=== PATIENT | male | born 1970 | race Caucasian/White ===

== ENCOUNTER 2024-08-14 13:29 | Emergency (ER) | payer SELFPAY ==
[~2024-08-14] VITALS: Ht 180.3 cm; Wt 63.5 kg
[~2024-08-14 13:29] MED LIST: Norco 10-325 T1 EACH PO
[2024-08-14 14:32] VITALS: BP 157/98
[2024-08-14 15:22] LABS: BASOPHILS ABSOLUTE AUTO 0.05 K/mm3 (0.00-0.23); BASOPHILS PERCENT AUTO 0 % (0-2); EOSINOPHILS ABSOLUTE AUTO 0.02 K/mm3 (0.00-0.68); EOSINOPHILS PERCENT AUTO 0 % (0-6); Hematocrit 42.7 % (37.0-53.0); Hemoglobin 14.6 g/dL (13.5-17.5); IMMATURE GRAN ABSOLUTE AUTO 0.11 K/mm3 (0.00-0.10); IMMATURE GRAN PERCENT AUTO 1 % (0-1); LYMPHOCYTES ABSOLUTE AUTO 1.35 K/mm3 (0.84-5.20); LYMPHOCYTES PERCENT AUTO 6 % (21-46); MONOCYTES ABSOLUTE AUTO 1.47 K/mm3 (0.16-1.47); MONOCYTES PERCENT AUTO 7 % (4-13); Mean Corpuscular HGB Conc 34.2 g/dL (31.5-36.5); Mean Corpuscular Volume 92 fL (80-100); NEUTROPHILS ABSOLUTE AUTO 18.99 K/mm3 (1.96-9.15); NEUTROPHILS PERCENT AUTO 86 % (41-73); NRBC ABSOLUTE 0.00 K/mm3 (0.00-0.02); NRBC Auto 0.0 /100 WBC (0.0-0.2); Platelet Count 299 K/mm3 (150-400); RDW Coefficient Variation 12.4 % (11.7-14.2); RDW Standard Deviation 42.1 fL (35.1-46.3)
[2024-08-14 15:40] LABS: Alanine Aminotransfer (ALT/SGP 32.0 U/L (12-78); Albumin, Blood 3.6 g/dL (3.4-5.0); Albumin/Globulin Ratio 0.9 (0.8-1.8); Anion Gap 7.0 mmol/L (3-11); Aspartate Aminotrans (AST/SGOT 19.0 U/L (12-37); Bilirubin, Total 0.6 mg/dL (0.1-1.0); Blood Urea Nitrogen 7.0 mg/dL (8-24); CO2, Blood 28.0 mmol/L (21-32); Calcium, Blood 9.2 mg/dL (8.5-10.1); Chloride, Blood 100.0 mmol/L (98-108); Creatinine, Blood 0.88 mg/dL (0.60-1.20); Globulin, Blood 3.8 g/dL (2.2-4.0); Glucose, Blood 109.0 mg/dL (70-99); Potassium, Blood 3.7 mmol/L (3.5-5.5); Sodium, Blood 131.0 mmol/L (136-145); Total Protein, Blood 7.4 g/dL (6.4-8.2)
[2024-08-14] MEDS ORDERED: Ketorolac Tromethamine 15mg Vial IV ONE (16:25)
[2024-08-14] MEDS ORDERED: Clindamycin 600mg in D5W 50 ML IV ONE (16:25)
[2024-08-14] MEDS ORDERED: NS 1,000 ML IV SCH (16:25)
[2024-08-14] MEDS ORDERED: Clindamycin HC150 MG PO (16:29)
[2024-08-14] MEDS ORDERED: HYDR1TAB94 PO (16:29)
== END 2024-08-14 17:51 | disposition left against medical advice (07) ==
LOC: ER 13:29
PROVIDERS: Student in an Organized Health Care Education/Training Program
DX: A41.9 Sepsis, unspecified organism (principal); L03.114 Cellulitis of left upper limb; E87.1 Hypo-osmolality and hyponatremia; Z53.29 Procedure and treatment not carried out because of patient's decision for other reasons
CPT/HCPCS: 73130; 80053; 83605; 85025; 90471; 90715; 96365; 96375; 99284-25; J1885; J7030

== ENCOUNTER 2024-08-16 15:42 | Inpatient (IN) | payer OTHER ==
[~2024-08-16] VITALS: Ht 177.8 cm; Wt 59.7 kg
[~2024-08-16 15:42] MED LIST changes: +Clindamycin HC150 MG PO; +HYDR1TAB94 PO
[2024-08-16 16:18] LABS: BASOPHILS ABSOLUTE AUTO 0.07 K/mm3 (0.00-0.23); BASOPHILS PERCENT AUTO 0 % (0-2); EOSINOPHILS ABSOLUTE AUTO 0.16 K/mm3 (0.00-0.68); EOSINOPHILS PERCENT AUTO 1 % (0-6); Hematocrit 40.3 % (37.0-53.0); Hemoglobin 13.7 g/dL (13.5-17.5); IMMATURE GRAN ABSOLUTE AUTO 0.08 K/mm3 (0.00-0.10); IMMATURE GRAN PERCENT AUTO 1 % (0-1); LYMPHOCYTES ABSOLUTE AUTO 1.48 K/mm3 (0.84-5.20); LYMPHOCYTES PERCENT AUTO 9 % (21-46); MONOCYTES ABSOLUTE AUTO 1.53 K/mm3 (0.16-1.47); MONOCYTES PERCENT AUTO 9 % (4-13); Mean Corpuscular HGB Conc 34.0 g/dL (31.5-36.5); Mean Corpuscular Volume 92 fL (80-100); NEUTROPHILS ABSOLUTE AUTO 13.18 K/mm3 (1.96-9.15); NEUTROPHILS PERCENT AUTO 80 % (41-73); NRBC ABSOLUTE 0.00 K/mm3 (0.00-0.02); NRBC Auto 0.0 /100 WBC (0.0-0.2); Platelet Count 331 K/mm3 (150-400); RDW Coefficient Variation 12.4 % (11.7-14.2); RDW Standard Deviation 42.5 fL (35.1-46.3)
[2024-08-16 16:50] LABS: Alanine Aminotransfer (ALT/SGP 39.0 U/L (12-78); Albumin, Blood 3.0 g/dL (3.4-5.0); Albumin/Globulin Ratio 0.7 (0.8-1.8); Anion Gap 8.0 mmol/L (3-11); Aspartate Aminotrans (AST/SGOT 29.0 U/L (12-37); Bilirubin, Total 0.5 mg/dL (0.1-1.0); Blood Urea Nitrogen 12.0 mg/dL (8-24); CO2, Blood 30.0 mmol/L (21-32); Calcium, Blood 8.9 mg/dL (8.5-10.1); Chloride, Blood 100.0 mmol/L (98-108); Creatinine, Blood 1.01 mg/dL (0.60-1.20); Globulin, Blood 4.1 g/dL (2.2-4.0); Glucose, Blood 134.0 mg/dL (70-99); Potassium, Blood 3.5 mmol/L (3.5-5.5); Sodium, Blood 134.0 mmol/L (136-145); Total Protein, Blood 7.1 g/dL (6.4-8.2)
[2024-08-16] MEDS ORDERED: NS 1,000 ML IV SCH ×2 (19:05→19:45)
[2024-08-16] MEDS ORDERED: Ciprofloxacin 400MG/D5 200ML 200 ML IV ONE (19:20)
[2024-08-16] MEDS ORDERED: Ondansetron HCl 2 MG / ML 2ML Vial IV PRN (19:45)
[2024-08-16] MEDS ORDERED: Vancomycin (Pharmacy Consult) IV SCH (19:45)
[2024-08-16] MEDS ORDERED: CeFAZolin Sodium 2,000 MG in NS 100 ML IV SCH (20:00)
[2024-08-16] MEDS ORDERED: Lactobacil 2-S.Thermo-Bifido 1 1 Cap PO SCH (21:00)
[2024-08-16 21:01] VITALS: BP 124/78
[2024-08-17] VITALS (13 sets, daily range): BP systolic 117–168; BP diastolic 71–101
[2024-08-17 00:20] LABS: U Amphetamine Screen DETECTED; U Barbituate Screen Not Detected; U Benzodiazapine Screen Not Detected; U Buprenorphine Screen Not Detected; U Cannabinoids Screen DETECTED; U Cocaine Screen Not Detected; U Methadone Screen Not Detected; U Methamphetamine Screen DETECTED; U Opiates Screen DETECTED; U Oxycodone Screen Not Detected; U Phencyclidine Screen Not Detected
[2024-08-17 05:43] LABS: Hematocrit 35.4 % (37.0-53.0); Hemoglobin 12.2 g/dL (13.5-17.5); Mean Corpuscular HGB Conc 34.5 g/dL (31.5-36.5); Mean Corpuscular Volume 91 fL (80-100); NRBC ABSOLUTE 0.00 K/mm3 (0.00-0.02); NRBC Auto 0.0 /100 WBC (0.0-0.2); Platelet Count 305 K/mm3 (150-400); RDW Coefficient Variation 12.5 % (11.7-14.2); RDW Standard Deviation 41.2 fL (35.1-46.3)
--- NOTE | 2024-08-17 05:45 | NUR ---
SUMMARY: PT AOX4, IND IN ROOM. PT COOPERATIVE THIS SHIFT. ON IV ABX. DENIES PAIN MEDICATION THIS SHIFT. ELEVATING LEFT HAND ON PILLOW OVERNIGHT. BED IN LOW POSITION AND CALL LIGHT WITHIN REACH.
[2024-08-17 06:31] LABS: Anion Gap 7.0 mmol/L (3-11); Blood Urea Nitrogen 10.0 mg/dL (8-24); CO2, Blood 26.0 mmol/L (21-32); Calcium, Blood 8.5 mg/dL (8.5-10.1); Chloride, Blood 105.0 mmol/L (98-108); Creatinine, Blood 0.89 mg/dL (0.60-1.20); Glucose, Blood 95.0 mg/dL (70-99); Potassium, Blood 3.5 mmol/L (3.5-5.5); Sodium, Blood 134.0 mmol/L (136-145)
[2024-08-17] MEDS ORDERED: Enoxaparin 40 MG/0.4 ML SYR SC SCH (09:00)
[2024-08-17] MEDS ORDERED: Bupivacaine 0.5% W/EPI 1:200000 SDV 30 ML Vial ONE (14:29)
--- NOTE | 2024-08-17 14:47 | NUR ---
PT HAS 20G IV TO RIGHT AC THAT FLUSHES WELL. HE ALSO HAS A 20G IV TO RIGHT UPPER ARM THAT FLUSHES WELL AND FLOWS TO GRAVITY.
--- NOTE | 2024-08-17 14:55 | NUR ---
PT BROUGHT FROM FLOOR TO DAY SURGERY FOR PROCEDURE. History, Chart, Medications and Allergies reviewed before start of procedure. Lungs clear T/O to Auscultation. Patient confirms NPO status and agrees with scheduled surgery. Pre-Op teaching done. Pt verbalizes understanding. PT BELONGINGS LEFT IN PERSONAL ROOM ON MEDICAL FLOOR FOR SAFEKEEPING.
[2024-08-17] MEDS ORDERED: Ketamine HCl 100 MG / ML 5ML Vial ONE (15:23)
[2024-08-17] MEDS ORDERED: Ondansetron HCl 2 MG / ML 2ML Vial ONE ×2 (15:36→15:51)
[2024-08-17] MEDS ORDERED: HYDROmorphone HCl/Pf 1MG SYR ONE (15:41)
[2024-08-17] MEDS ORDERED: Ondansetron HCl 2 MG / ML 2ML Vial IV PRN (16:35)
[2024-08-17] MEDS ORDERED: FentaNYL Citrate 50 MCG/ML 2 ML Injection IV PRN ×3 (16:35)
--- NOTE | 2024-08-17 17:56 | NUR ---
PT IN BED RESTING AFTER HAVING I&D COMPLETED. RESUMED CARE OF PT AT 1645. PT WITH C/O PAIN AND MEDICATED PER EMAR. PT LEFT HAND WRAPPED IN KERLIX AND CIARAN BANDAGE; PINKY FINGER STILL DARK PURPLE. PT DENIES LACK OF FEELING AND STATES IT TINGLES. REMINDED PT TO CALL IF NO LONGER ABLE TO FEEL IT. PT EATING DINNER AND APPEARS TO BE IN REDUCED PAIN, THOUGH STILL STATES IT IS THROBBING. ARM/HAND ELEVATED WITH PILLOWS AT THIS TIME. PT ABLE TO UTILIZE CALL LIGHT APPROPRIATELY AND CALL LIGHT WITHIN REACH, BED IN LOWEST POSITION.
[2024-08-18 04:03] VITALS: BP 132/82
[2024-08-18 07:15] VITALS: BP 133/86
[2024-08-18] MEDS ORDERED: Polyethylene Glycol 3350 17 gm PO PRN (07:35)
[2024-08-18 08:42] LABS: Vancomycin, Trough 10.6 ug/mL (5.0-10.0)
[2024-08-18 15:39] VITALS: BP 116/75
--- NOTE | 2024-08-18 18:15 | NUR ---
SHIFT SUMMARY PATIENT ALERT AND INTERACTIVE WHEN AWAKE. PATIENT INDEPENDENT IN THE ROOM. PATIENT IS HOPEFUL OF DISCHARGING TOMORROW. PATIENT CONTINUES TO GET IV ANTIBIOTICS. EDUCATION PROVIDED ON THE IMPORTANCE OF KEEPING ARM ELEVATED. PATIENT ABLE TO MOVE FINGERS AND CAP REFILL GOOD. DRESSING DRY AND INTACT. SURGERY TO REEVALUATE TOMORROW. PATIENT MEDICATED FOR PAIN NEEDED PER ORDERS.
[2024-08-18 19:48] VITALS: BP 113/77
[2024-08-18] MEDS ORDERED: Docusate Sodium/Senna 1 Tab PO SCH (21:00)
[2024-08-19] MEDS ORDERED: NS 250 ML IV PRN (02:40)
[2024-08-19 04:12] VITALS: BP 134/79
--- NOTE | 2024-08-19 05:32 | NUR ---
SHIFT SUMMARY PT SLEPT INTERMITTENTLY DURING THE NIGHT. SCHEDULED ES TYLENOL FOR PAIN PER EMAR- PT DENIES THE NEED FOR OXYCODONE. IV ANTIBIOTICS CONTINUE PER ORDER. LEFT HAND ELEVATED. DRESSING C/D/I. PT INDEPENDENT IN ROOM. PT VERBALIZES SOME FRUSTRATION WITH HOSPITAL ROUTINES, BUT COOPERATIVE WITH CARE. BED IN LOWEST POSITION, CALL LIGHT WITHIN REACH, SIDERAILS UP X2.
[2024-08-19 07:39] VITALS: BP 146/77
[2024-08-19 08:57] LABS: Hematocrit 39.6 % (37.0-53.0); Hemoglobin 13.6 g/dL (13.5-17.5); Mean Corpuscular HGB Conc 34.3 g/dL (31.5-36.5); Mean Corpuscular Volume 92 fL (80-100); NRBC ABSOLUTE 0.00 K/mm3 (0.00-0.02); NRBC Auto 0.0 /100 WBC (0.0-0.2); Platelet Count 355 K/mm3 (150-400); RDW Coefficient Variation 12.2 % (11.7-14.2); RDW Standard Deviation 41.6 fL (35.1-46.3)
[2024-08-19 09:23] LABS: Magnesium, Blood 2.0 mg/dL (1.6-2.4)
[2024-08-19 09:24] LABS: Albumin, Blood 2.6 g/dL (3.4-5.0); Anion Gap 8 mmol/L (3-11); Blood Urea Nitrogen 8 mg/dL (8-24); CO2, Blood 28 mmol/L (21-32); Calcium, Blood 8.7 mg/dL (8.5-10.1); Chloride, Blood 104 mmol/L (98-108); Creatinine, Blood 0.72 mg/dL (0.60-1.20); Creatinine, Blood 0.78 mg/dL (0.60-1.20); Glucose, Blood 109 mg/dL (70-99); Phosphorus, Blood 3.3 mg/dL (2.5-4.9); Potassium, Blood 3.8 mmol/L (3.5-5.5); Sodium, Blood 136 mmol/L (136-145); Vancomycin, Trough 15.5 ug/mL (5.0-10.0)
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
--- NOTE | 2024-08-19 16:31 | NUR ---
SHIFT SUMMARY MR ARMENDARIZ IS RESTING IN BED WITH HIS LEFT ARM ELEVATED. RN CONTACTED DR KO WHO HAS AN ETA OF AROUND 1730 FOR WOUND ASSESSMENT. MR ARMENDARIZ IS AWARE OF THE PLAN OF CARE AND IN AGREEMENT WITH IT. HE HAS DENIED LEFT HAND PAIN. UP INDEPENDENTLY TO THE BATHROOM. RECEIVING IV VANCOMYCIN TO CLAUDETTE KEANE. BED LOW, CALL LIGHT IN REACH.
[2024-08-19 17:12] VITALS: BP 142/92
[2024-08-19] MEDS ORDERED: DOXYCYCLINE HY100 MG PO (18:57)
--- NOTE | 2024-08-19 19:33 | NUR ---
DISCHARGE NOTE MR ARMENDARIZ SAW DR KO. DRESSING WAS REMOVED AND REPLACED WITH XEROFORM, GAUZE AND KERLEX WRAP. MR ARMENDARIZ WAS DISCHARGED HOME. PIV REMOVED BY JAVA LEAD ENGINEER RN, PT VERBALISED UNDERSTANDING OF WRITTEN AND VERBAL DISCHARGE INSTRUCTIONS. VISITOR WITH PT AT TIME OF DISCHARGE. WHEELED OUT FROM MEDICAL UNIT VIA W/C WITH HORSE WRANGLER AT 1930HRS.
== END 2024-08-19 21:19 | disposition home or self-care (01) | DRG 854 ==
LOC: ER 15:42 → MEDS 19:42
PROVIDERS: Internal Medicine; Nurse Practitioner Acute Care; Orthopaedic Surgery Sports Medicine; Student in an Organized Health Care Education/Training Program; ADMIT Internal Medicine
PROC: 3E03329 Introduction of Other Anti-infective into Peripheral Vein, Percutaneous Approach (ICD-10-PCS; 2024-08-16)
PROC: 0LB80ZZ Excision of Left Hand Tendon, Open Approach (ICD-10-PCS; principal; 2024-08-17 15:00)
DX: A41.02 Sepsis due to Methicillin resistant Staphylococcus aureus (principal); E87.1 Hypo-osmolality and hyponatremia; L03.114 Cellulitis of left upper limb; L02.512 Cutaneous abscess of left hand; F12.10 Cannabis abuse, uncomplicated; F15.10 Other stimulant abuse, uncomplicated; Z88.0 Allergy status to penicillin; Z79.899 Other long term (current) drug therapy
CPT/HCPCS: 36415; 73201; 80048; 80053; 80069; 80202; 82565; 83605; 83735; 85025; 85027; 87040; 87070; 87071; 87075; 87077; 87147; 87186; 87205; 93005; 93010; 99285-25; A9270; J0690; J0744; J1171; J1650; J2405; J2704; J3373; J7030; J7050; J7120; Q9967

== ENCOUNTER 2024-09-12 09:04 | Day surgery (SDC) | payer OTHER ==
[~2024-09-12] VITALS: Ht 177.8 cm; Wt 60.7 kg
[~2024-09-12 09:04] MED LIST changes: +DOXYCYCLINE HY100 MG PO
[2024-09-12] MEDS ORDERED: CeFAZolin Sodium 2,000 MG VIAL ONE (09:28)
--- NOTE | 2024-09-12 09:48 | NUR ---
09/12/24 0948 JANKI SOMMERS PT USED LOTUS WIPE AROUND WOUND AREA BUT DID NOT USE ON WOUND PER INSTRUCTED STATES PT.
[2024-09-12] MEDS ORDERED: Lidocaine HCl 2% 10 ML SDA ONE (11:18)
[2024-09-12] MEDS ORDERED: Vancomycin HCl 1000 MG ADDvantage ONE (11:20)
[2024-09-12] MEDS ORDERED: FentaNYL Citrate 50 MCG/ML 2 ML Injection ONE ×2 (11:29→11:31)
[2024-09-12 12:54] VITALS: BP 98/74
--- NOTE | 2024-09-12 13:38 | NUR ---
09/12/24 4747 Candida Michaels RECEIVED REPORT FROM DANY GARCIA AT 1320. PT IN RECLINER, LEFT ARM ELEVATED ON A PILLOW AND ICE PACK APPLIED. PT REPORTS PAIN 2/10 AND STATES IS TOLERABLE. DENIES NAUSEA. TOLERATING ORAL FLUIDS WELL.
== END 2024-09-12 13:45 | disposition home or self-care (01) ==
LOC: ORSCSDS 09:04
DX: T81.49XA Infection following a procedure, other surgical site, initial encounter (principal); S61.422A Laceration with foreign body of left hand, initial encounter; B95.62 Methicillin resistant Staphylococcus aureus infection as the cause of diseases classified elsewhere; F17.210 Nicotine dependence, cigarettes, uncomplicated
CPT/HCPCS: 87070; 87075; 87077; 87102; 87106; 87147; 87186; 87205; C9363; J0690; J2003; J2704; J3010; J3373; J7050; J7120

== ENCOUNTER 2024-10-26 02:39 | Day surgery (SDC) | payer OTHER ==
[2024-10-26] MEDS ORDERED: Lidocaine HCl 4% Cream 5 GM ONE (12:43)
== END 2024-10-26 23:00 | disposition home or self-care (01) ==
LOC: WOUND 02:39
DX: L03.012 Cellulitis of left finger (principal); S61.207D Unspecified open wound of left little finger without damage to nail, subsequent encounter; X58.XXXD Exposure to other specified factors, subsequent encounter; Z88.0 Allergy status to penicillin
CPT/HCPCS: A9270; G0463

== ENCOUNTER 2024-11-09 02:16 | Day surgery (SDC) | payer OTHER ==
[2024-11-09] MEDS ORDERED: Lidocaine HCl 4% Cream 5 GM ONE (08:29)
== END 2024-11-09 23:00 | disposition home or self-care (01) ==
LOC: WOUND 02:16
DX: L03.011 Cellulitis of right finger (principal)
CPT/HCPCS: A9270; G0463

== ENCOUNTER 2024-11-23 00:18 | Day surgery (SDC) | payer OTHER ==
[2024-11-23] MEDS ORDERED: Lidocaine HCl 4% Cream 5 GM ONE (08:35)
== END 2024-11-23 23:00 | disposition home or self-care (01) ==
LOC: WOUND 00:18
DX: L03.011 Cellulitis of right finger (principal)
CPT/HCPCS: A9270; G0463

== ENCOUNTER 2024-11-30 02:54 | Day surgery (SDC) | payer OTHER ==
[2024-11-30] MEDS ORDERED: Lidocaine HCl 4% Cream 5 GM ONE (08:42)
== END 2024-11-30 23:00 | disposition home or self-care (01) ==
LOC: WOUND 02:54
DX: L03.011 Cellulitis of right finger (principal)
CPT/HCPCS: A9270; G0463

== ENCOUNTER 2024-12-07 00:33 | Day surgery (SDC) | payer OTHER ==
[2024-12-07] MEDS ORDERED: Lidocaine HCl 4% Cream 5 GM ONE (08:33)
== END 2024-12-07 23:00 | disposition home or self-care (01) ==
LOC: WOUND 00:33
DX: L03.011 Cellulitis of right finger (principal)
CPT/HCPCS: A9270

== ENCOUNTER 2024-12-14 01:38 | Day surgery (SDC) | payer OTHER | END 2024-12-14 23:00 | disposition home or self-care (01) | LOC: WOUND 01:38 | DX: S61.206A Unspecified open wound of right little finger without damage to nail, initial encounter (principal); T81.30XA Disruption of wound, unspecified, initial encounter; X58.XXXA Exposure to other specified factors, initial encounter | CPT/HCPCS: G0463 ==

== ENCOUNTER 2024-12-21 00:10 | Day surgery (SDC) | payer OTHER | END 2024-12-21 23:00 | disposition home or self-care (01) | LOC: WOUND 00:10 | DX: L03.011 Cellulitis of right finger (principal) | CPT/HCPCS: G0463 ==

== ENCOUNTER 2025-01-11 00:13 | Day surgery (SDC) | payer OTHER | END 2025-01-11 23:22 | disposition home or self-care (01) | LOC: WOUND 00:13 | DX: S61.207A Unspecified open wound of left little finger without damage to nail, initial encounter (principal); T81.30XA Disruption of wound, unspecified, initial encounter; X58.XXXA Exposure to other specified factors, initial encounter | CPT/HCPCS: G0463 ==

== ENCOUNTER 2025-02-08 07:39 | Day surgery (SDC) | payer OTHER | END 2025-02-08 23:00 | disposition home or self-care (01) | LOC: WOUND 07:39 | DX: L03.011 Cellulitis of right finger (principal); Z87.828 Personal history of other (healed) physical injury and trauma; Z09 Encounter for follow-up examination after completed treatment for conditions other than malignant neoplasm; Z79.2 Long term (current) use of antibiotics | CPT/HCPCS: G0463 ==